=== PATIENT | male | born 1985 | race Caucasian/White ===

== ENCOUNTER → 2023-05-17 15:21 | Outpatient (BNVA) | payer MEDICAID, SELFPAY | PROVIDERS: PCP Nurse Practitioner Family; Visit Provider Nurse Practitioner Family | DX: S62.322A Displaced fracture of shaft of third metacarpal bone, right hand, initial encounter for closed fracture (principal); S62.324A Displaced fracture of shaft of fourth metacarpal bone, right hand, initial encounter for closed fracture; X58.XXXA Exposure to other specified factors, initial encounter; M79.641 Pain in right hand | CPT/HCPCS: 73130 ==

== ENCOUNTER 2023-06-13 14:23 | Outpatient (CLI) | payer MEDICAID, SELFPAY ==
--- NOTE | 2023-06-13 14:28 | XRR_ITS ---
PROCEDURE INFORMATION: Exam: XR Abdomen Exam date and time: 06/13/2023 2:35 PM Age: 37 years old Clinical indication: Generalized; Patient HX: Abdominal pain for 2 months; Additional info: K92.1 - melena TECHNIQUE: Imaging protocol: Radiologic exam of the abdomen. Views: Frontal supine view of the abdomen. 1 View. COMPARISON: No relevant prior studies available. FINDINGS: Gastrointestinal tract: Normal. No bowel dilation. Vasculature: Several small calcifications in the pelvis are highly likely to be phleboliths. However, in the proper clinical setting a distal ureteral calculus may need to be considered. Bones/joints: Unremarkable. XR/XR abdomen 1V* [id number] IMPRESSION: No obvious acute findings.
== END 2023-06-13 14:24 | disposition home or self-care (01) ==
LOC: RAD 14:25
PROVIDERS: PCP Nurse Practitioner Family; Visit Provider Nurse Practitioner Family
DX: K92.1 Melena (principal)
CPT/HCPCS: 74018

== ENCOUNTER → 2023-06-27 15:18 | Outpatient (BNVA) | payer MEDICAID, SELFPAY | PROVIDERS: PCP Nurse Practitioner Family; Visit Provider Nurse Practitioner Family | DX: K92.1 Melena (principal) | CPT/HCPCS: 82270 ==